=== PATIENT | male | born 1995 | race African-American/Black ===

== ENCOUNTER 2017-06-03 09:22 | Observation (INO) | payer OTHER ==
[~2017-06-03] VITALS: Ht 180.3 cm; Wt 61.5 kg
[~2017-06-03 09:22] MED LIST: NAPROSYN500 MG PO
[2017-06-03 10:31] LABS: EOSINOPHIL (%) 1.7 % (0-5); EOSINOPHIL COUNT 0.2 K/uL (0-0.3); HEMATOCRIT 44.6 % (38.0-50.0); IMMATURE GRANULOCYTE (%) 0.3 % (0.0-0.7); INSTRUMENT ABS NEUTROPHIL CT 8.9 K/uL; LYMPHOCYTE COUNT 1.6 K/uL (1.0-2.8); MCH 27.5 PG (29.0-34.0); MCHC 31.8 G/DL (30.0-36.0); MCV 86.4 FL (86-99); MEAN PLAT.VOLUME 9.1 uM^3 (9.0-12.4); MONOCYTE COUNT 0.5 K/uL (0-0.8); NEUTROPHIL (%) 79.6 % (45-76); NEUTROPHIL COUNT 8.9 K/uL (1.8-6.4); PLATELET COUNT 279 K/uL (156-360); RBC DIS.WIDTH-CV 13.3 % (11.8-14.6); RBC DIS.WIDTH-SD 41.6 % (39-53); RED BLOOD COUNT 5.16 M/uL (4.00-5.50); WHITE BLOOD COUNT 11.2 K/uL (4.1-10.2)
[2017-06-03 10:41] LABS: CHLORIDE 103 mEq/L (99-109); POTASSIUM 3.9 mEq/L (3.7-5.4); SODIUM 140 mEq/L (136-147)
[2017-06-03 10:43] LABS: GLUCOSE 95 mg/dL (70-99)
[2017-06-03 10:45] LABS: ANION GAP 10 MEQ/L (2-14); TOTAL BILIRUBIN 0.7 mg/dL (0.0-1.0)
[2017-06-03 10:47] LABS: ALKALINE PHOSPHATASE 190 IU/L (3-129); GFR ESTIMATE (CALCULATED) > 59 mL/min/
[2017-06-03 10:48] LABS: UREA NITROGEN (BUN) 5 mg/dL (9-23)
[2017-06-03 10:53] LABS: TROP-I INTERPRETATION NEGATIVE; TROPONIN-I < 0.01 ng/mL (0.0-0.30)
[2017-06-03 16:45] LABS: INFLUENZA A VIRAL ANTIGEN NEGATIVE; INFLUENZA B VIRAL ANTIGEN NEGATIVE
[2017-06-03 16:52] VITALS: BP 114/58
[2017-06-03 18:50] LABS: TROP-I INTERPRETATION NEGATIVE; TROPONIN-I < 0.01 ng/mL (0.0-0.30)
[2017-06-03 23:30] VITALS: BP 100/58
[2017-06-04 01:58] LABS: TROP-I INTERPRETATION NEGATIVE; TROPONIN-I < 0.01 ng/mL (0.0-0.30)
[2017-06-04 04:39] VITALS: BP 124/59
[2017-06-04 06:32] LABS: HEMATOCRIT 40.3 % (38.0-50.0); MCH 27.1 PG (29.0-34.0); MCHC 31.5 G/DL (30.0-36.0); MCV 86.1 FL (86-99); MEAN PLAT.VOLUME 10.2 uM^3 (9.0-12.4); PLATELET COUNT 253 K/uL (156-360); RBC DIS.WIDTH-CV 13.3 % (11.8-14.6); RBC DIS.WIDTH-SD 41.1 % (39-53); RED BLOOD COUNT 4.68 M/uL (4.00-5.50); WHITE BLOOD COUNT 8.3 K/uL (4.1-10.2)
[2017-06-04 07:14] LABS: ALKALINE PHOSPHATASE 142 IU/L (3-129); ANION GAP 9 MEQ/L (2-14); CHLORIDE 102 MEQ/L (99-109); GFR ESTIMATE (CALCULATED) > 59 mL/min/; GLUCOSE 99 mg/dL (70-99); POTASSIUM 3.4 MEQ/L (3.7-5.4); SAMPLE HEMOLYSIS CHECK 0; SAMPLE ICTERIC CHECK 0; SAMPLE LIPEMIA CHECK 0; SODIUM 137 MEQ/L (136-147); TOTAL BILIRUBIN 0.9 MG/DL (0.0-1.0); UREA NITROGEN (BUN) 6 mg/dL (9-23)
[2017-06-04 07:44] VITALS: BP 122/61
[2017-06-04 10:10] LABS: HIV INDEX 0.14; HIV-1/2 AB/AG COMBO Nonreactive
[2017-06-04 10:35] LABS: INTERNAL CONTROL VALID? YES
[2017-06-04] MEDS ORDERED: LEVAQUIN750 MG PO (11:00)
[2017-06-04 11:11] VITALS: BP 124/72
== END 2017-06-04 12:45 | disposition home or self-care (01) ==
LOC: EME 09:22 → ENRESERV 13:30 → EDOF 13:34 → 5SOUTH 13:34 → EDOF 13:41 → ENRESERV 13:54 → 5SOUTH 16:37
PROVIDERS: Emergency Medicine; Internal Medicine
DX: J18.0 Bronchopneumonia, unspecified organism (principal); F17.210 Nicotine dependence, cigarettes, uncomplicated
CPT/HCPCS: 71020; 71275; 80053; 83605; 84484; 85025; 85027; 85379; 86703; 87040; 87070; 87205; 87449; 87502; 93005; 99202; 99281; 99285; G0378; J0456; J0696; J1644; J2270; J7030; J7050